=== PATIENT | female | born 1970 | race Hispanic/Latino ===

== ENCOUNTER 2023-07-12 16:06 | Outpatient (CLI) | payer BC | END 2023-07-12 16:07 | disposition home or self-care (01) | LOC: CSHRAD 16:06 | PROVIDERS: ATTEND Family Medicine | DX: M54.42 Lumbago with sciatica, left side (principal); Q76.49 Other congenital malformations of spine, not associated with scoliosis; M47.816 Spondylosis without myelopathy or radiculopathy, lumbar region; M25.78 Osteophyte, vertebrae | CPT/HCPCS: 72100 ==